=== PATIENT | female | born 1950 | race Caucasian/White ===

== ENCOUNTER 2020-04-27 18:31 | Emergency (ER) | payer MEDICARE, MEDICAID, SELFPAY ==
[2020-04-27] VITALS (7 sets, daily range): BP systolic 108–181; BP diastolic 60–84; PULSE 61–116; RESP 14–23; TEMP 36.1–36.7; O2SAT 92–98; BMI 39.6
--- NOTE | 2020-04-27 19:10 | XR_ITS ---
WS: [id number] Portable AP upright chest, 04/27/2020 Clinical Data: tia Comparison: None. Findings: No nodules, masses or effusions are seen. The heart is normal. The pulmonary vascularity is not increased. No pneumonia or pneumothorax is seen. The aortic arch and descending aorta are tortuo us. XR/XR chest 1V portable [id number] Impression: Atherosclerosis.
--- NOTE | 2020-04-27 19:10 | CTR_ITS ---
PROCEDURE INFORMATION: Exam: CT Head Without Contrast Exam date and time: 04/27/2020 7:27 PM Age: 69 years old Clinical indication: Other: TIA on Saturday TECHNIQUE: Imaging protocol: Computed tomography of the head without contrast. Total images: 190 Radiation optimization: All CT scans at this facility use at least one of these dose optimization techniques: automated exposure control; mA and/or kV adjustment per patient size (includes targeted exams where dose is matched to clinical indication); or iterative reconstruction. COMPARISON: No relevant prior studies available. RADIATION DOSE METRICS: Total DLP (mGy-cm): 769.82 FINDINGS: Brain: No evidence of active or acute intracranial pathologic process, hemorrhage, or trauma. Unremarkable white matter for age. No mass effect. No midline shift. Cerebral ventricles: No ventriculomegaly. Bones/joints: Unremarkable. No acute fracture. Paranasal sinuses: Visualized sinuses are unremarkable. No fluid levels. Mastoid air cells: Visualized mastoid air cells are well aerated. Soft tissues: Unremarkable. CT/CT head wo con* [id number] IMPRESSION: No visible acute intracranial abnormality. Radiation Dose CTDIVOL = (mGy): DLP = 769.82 (mGy-cm)
--- NOTE | 2020-04-27 19:11 | ECG_ITS ---
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 Measurements Intervals Seanor Rate: 80 P: 39 RI: 152 QRS: 10 QRSD: 90 T: 38 QT: 368 QTc: 426 Interpretive Statements SINUS RHYTHM NONSPECIFIC ST & T-WAVE ABNORMALITY No previous ECG available for comparison Electronically Signed On 04-27-2020 20:14:37 PARKS RECREATION DIRECTOR by Keya Land M.D. [id number]
--- NOTE | 2020-04-27 21:41 | W.ED.NEUROSD ---
HPI - Neuro Symptoms/Deficit General: Chief Complaint: Neuro Symptoms/Deficit Stated Complaint: TIA Saturday-wants checked out Time Seen by Provider: 04/27/20 21:34 Source: patient Mode of arrival: ambulatory Limitations: no limitations History of Present Illness: HPI Narrative: 69-year-old female states that on Saturday she felt like she had facial droop started having bilateral arm pain. States this lasted 5 to 10 minutes and then resolved. She states she had some slight headache since then and some pain in her arms. Patient states her PCP was concerned she could have had a mini stroke and wanted her to be evaluated here. She denies any chest pain. Denies any fever. Associated symptoms: Reports headache(s); Deny chest pain, nausea or vomiting Review of Systems Const: Denies: fever(s), chills, body aches or change in appetite Eyes: Denies: blurry vision or eye discomfort ENMT: Denies: throat pain or dental pain Card: Denies: chest pain Resp: Denies: dyspnea GI: Denies: abdominal pain, nausea, vomiting or diarrhea : Denies: dysuria Musc: Denies: neck pain or back pain Skin/Breast: Denies: rash Neuro: Reports: headache(s) Psych: Denies: depression Edmund/Lymph: Denies: easy bruising All/Imm: Denies: urticaria PFSH ED PFSH: Social History (Updated 04/27/20 @ 18:57 by Tay Boyce RN) Smoking and tobacco status: never smoked Alcohol intake: current Alcohol intake frequency: 0-2 Drinks per Day Substance/Drug Use: never NIH stroke score NIHSS: Level Of Consciousness - 1a: 0 Level Of Consciousness Questions - 1b: Both Correct Level Of Consciousness Commands - 1c: Both Correct Best Gaze - 2: Normal Visual Agosto - 3: No Visual Loss Facial Palsy - 4: Normal Motor Arm Right - 5: No Drift Motor Arm Left - 5: No Drift Motor Leg Right - 6: No Drift Motor Leg Left - 6: No Drift Limb Ataxia - 7: Absent Sensory - 8: Normal Best Language - 9: No Aphasia Dysarthia - 10: Normal Extinction And Inattention - 11: 0 Score: Total Score: 0 Physical Exam Const: COMMON NORMALS: no acute distress, patient oriented x3, healthy appearing and alert HENMT: COMMON NORMALS: normocephalic and atraumatic HEAD & SCALP: normocephalic and atraumatic Eye: COMMON NORMALS: Equal, round and reactive pupils present and EOMs intact bilaterally PUPIL: Yes Equal, round and reactive pupils present Neck/C-Spine: COMMON NORMALS: full ROM and supple Chest: COMMONS NORMALS: normal inspection of the chest and normal palpation of entire chest wall Resp: COMMON NORMALS: normal respiratory effort, No retractions, No use of accessory muscles and clear to auscultation bilaterally AUSCULTATION: clear to auscultation bilaterally Cardio: COMMON NORMALS: regular rate, regular rhythm and No murmurs present (Cardio) RATE: regular rate RHYTHM: regular rhythm GI: COMMON NORMALS: Normal to inspection, nondistended, normoactive bowel sounds present, Soft to palpation, non-tender and no masses PALPATION: Yes Soft to palpation Extremity: COMMON NORMALS: normal to inspection and full ROM Neuro: COMMON NORMALS: patient oriented x3, moves all extremities and no focal motor deficits SENSORIUM/ORIENTATION: Yes alert CRANIAL NERVES: Yes CN normal except as noted SPEECH: speech normal GAIT: Yes Normal gait present MOTOR EXAM: 5/5 motor strength present throughout Psych: COMMON NORMALS: mental status grossly normal, Normal thought process present and cooperative THOUGHT PROCESS: Normal thought process present Skin: COMMON NORMALS: no rashes or lesions noted and no wounds GENERAL SKIN EXAM: no rashes or lesions noted Course Vital Signs: Vital signs: Vital Signs Temperature 97 F L 04/27/20 21:44 Pulse Rate 88 04/27/20 22:32 Respiratory Rate 18 04/27/20 22:32 Blood Pressure 108/60 04/27/20 22:32 Pulse Oximetry 95 04/27/20 22:32 MDM - Neuro Symptoms/Deficit MDM Narrative: Medical decision making narrative: Patient presents here with TIA like symptoms that are atypical in nature. Patient is well-appearing here and has no signs of acute stroke. Head CT here is normal. Patient is stable for discharge is to follow-up with PCP and return if any other symptoms returns. She understands and agrees to plan. Lab Data: Labs: Lab Results 04/27/20 04/27/20 04/27/20 Range/Units 22:00 22:00 22:25 WBC 7.1 (4.0-10.0) 10^3/ uL RBC 4.33 (4.1-5.3) 10^6/u L Hgb 14.2 (11.5-15.3) g/dL Hct 43.0 (37.0-47.0) % MCV 99.3 H (81-99) fL MCH 32.8 (28.0-34.0) pg MCHC 33.0 (30.0-36.0) g/dL RDW 12.2 (12.1-15.1) % Plt Count 243 (130-400) 10^3/c mm MPV 10.4 (7.4-10.4) fL Neut % (Auto) 44.9 % Lymph % (Auto) 40.4 % [place] % (Auto) 10.9 % Eos % (Auto) 2.5 % Baso % (Auto) 1.0 % Neut # (Auto) 3.20 (1.8-7.7) 10^3/u L Lymph # (Auto) 2.9 (0.8-4.8) 10^3/u L [place] # (Auto) 0.8 (0.2-0.9) 10^3/u L Eos # (Auto) 0.2 (0.0-0.8) 10^3/u L Baso # (Auto) 0.1 (0.0-0.1) 10^3/u L Nucleated RBC % (a uto) 0 % Nucleated RBCs # 0.0 /100WBC PT 13.30 (12.1-14.9) SECO NDS INR 0.98 (0.8-1.2) Sodium 140 (136-145) mmol/L Potassium 3.8 (3.5-5.1) mmol/L Chloride 104 (98-107) mmol/L Carbon Dioxide 28 (22-29) mmol/L Anion Gap 11.8 (5-19) BUN 15 (8-23) mg/dL Creatinine 1.0 H (0.5-0.9) mg/dL GFR Calculation 55.0 L (90-130) mL/min Glucose 94 (65-115) mg/dL Calculated Osmolal ity 291 (285-295) mOsm/k g Calcium 9.8 (8.5-10.5) mg/dL Total Bilirubin 0.5 (0.15-1.2) mg/dL AST 54 H (0-32) U/L ALT 46 H (0-33) U/L Alkaline Phosphata se 100 (35-105) IU/L Total Protein 7.3 (6.6-8.7) g/dL Albumin 4.5 (3.5-5.2) g/dL Globulin 2.8 (1.3-4.6) g/dL Imaging Data^: CT Head: Attestation: I personally reviewed and interpreted this imaging study as follows: Radiologist's impression: [address] [address] [address] Scan Report Signed Patient: Anne Yeboah Unit #: [id number] : 1950 Age/Sex: 69 / F ADM Date: 04/27/20 Loc: ER Room/Bed: Attending Dr: Ordering Provider/Ordering MD: Sukumar Eid MD Date of Service: 04/27/20 Procedure(s): CT head wo con* [id number] Accession Number(s): [id number] Report Number: [id number] PROCEDURE INFORMATION: Exam: CT Head Without Contrast Exam date and time: 04/27/2020 7:27 PM Age: 69 years old Clinical indication: Other: TIA on Saturday TECHNIQUE: Imaging protocol: Computed tomography of the head without contrast. Total images: 190 Radiation optimization: All CT scans at this facility use at least one of these dose optimization techniques: automated exposure control; mA and/or kV adjustment per patient size (includes targeted exams where dose is matched to clinical indication); or iterative reconstruction. COMPARISON: No relevant prior studies available. RADIATION DOSE METRICS: Total DLP (mGy-cm): 769.82 FINDINGS: Brain: No evidence of active or acute intracranial pathologic process, hemorrhage, or trauma. Unremarkable white matter for age. No mass effect. No midline shift. Cerebral ventricles: No ventriculomegaly. Bones/joints: Unremarkable. No acute fracture. Paranasal sinuses: Visualized sinuses are unremarkable. No fluid levels. Mastoid air cells: Visualized mastoid air cells are well aerated. Soft tissues: Unremarkable. CT/CT head wo con* [id number] IMPRESSION: No visible acute intracranial abnormality. Radiation Dose CTDIVOL = (mGy): DLP = 769.82 (mGy-cm) CXR: Attestation: I personally reviewed and interpreted this imaging study as follows: My impression: no acute abnormality EKG Data^: EKG 1: Attestation: I personally reviewed and interpreted this EKG as follows: EKG interpretation date: 04/27/20 EKG interpretation time: 19:03 Interpretation: nsr hr [address] or t wave abnormalities qrs 90 qtc 404 Discharge Plan Discharge Patient Disposition: Home Clinical Impression: Transient cerebral ischemia Qualifiers: Transient cerebral ischemia type: unspecified Qualified Code(s): G45.9 - Transient cerebral ischemic attack, unspecified Condition: Stable Discharge Orders: Discharge ED (Routine); Ordered 04/27/20 Ordered By: Sukumar Eid Referrals: Gaudencio Villasenor DO [Primary Care Provider] - 1-3 days Discharge Diet: Advance as tolerated Discharge Activity: Resume usual activity Patient Instructions: TIA Coding Level of Care Code ED Resistance Brazer for Chg Fwd Exam Comprehensive
[2020-04-27 22:31] LABS: Alanine Aminotransferase 46 U/L (0-33); Albumin Level 4.5 g/dL (3.5-5.2); Alkaline Phosphatase 100 IU/L (35-105); Anion Gap 11.8 (5-19); Aspartate Amino Transferase 54 U/L (0-32); Blood Urea Nitrogen 15 mg/dL (8-23); Calcium 9.8 mg/dL (8.5-10.5); Carbon Dioxide 28 mmol/L (22-29); Chloride 104 mmol/L (98-107); Globulin 2.8 g/dL (1.3-4.6); Glucose 94 mg/dL (65-115); Osmolality Calculated 291 mOsm/kg (285-295); Potassium 3.8 mmol/L (3.5-5.1); Sodium 140 mmol/L (136-145); Total Bilirubin 0.5 mg/dL (0.15-1.2); Total Protein 7.3 g/dL (6.6-8.7)
[2020-04-27 22:34] LABS: INR 0.98 (0.8-1.2)
[2020-04-27 22:36] LABS: Basophils # 0.1 10^3/uL (0.0-0.1); Eosinophils # 0.2 10^3/uL (0.0-0.8); Eosinophils % 2.5 %; Hemoglobin 14.2 g/dL (11.5-15.3); Lymphocytes # 2.9 10^3/uL (0.8-4.8); Lymphocytes % 40.4 %; Mean Corpuscular Hemoglobin 32.8 pg (28.0-34.0); Mean Corpuscular Volume 99.3 fL (81-99); Mean Platelet Volume 10.4 fL (7.4-10.4); Monocytes # 0.8 10^3/uL (0.2-0.9); Monocytes % 10.9 %; Neutrophils % 44.9 %; Nucleated Red Blood Cells % 0 %; Platelet Count 243 10^3/cmm (130-400); Red Blood Count 4.33 10^6/uL (4.1-5.3); Red Cell Distribution Width 12.2 % (12.1-15.1); White Blood Count 7.1 10^3/uL (4.0-10.0)
== END 2020-04-27 23:00 | disposition home or self-care (01) ==
PROVIDERS: Emergency Provider Emergency Medicine; PCP Family Medicine
DX: G45.9 Transient cerebral ischemic attack, unspecified (principal)
CPT/HCPCS: 12345; 70450; 71045; 80053; 85025; 85610; 93005; 99281; 99283

== ENCOUNTER → 2020-12-12 09:12 | Outpatient (BNVA) | payer MEDICARE, MEDICAID, SELFPAY | PROVIDERS: PCP Family Medicine; Visit Provider Nurse Practitioner | DX: I99.8 Other disorder of circulatory system (principal) | CPT/HCPCS: 99204 ==

== ENCOUNTER → 2021-08-03 10:43 | Outpatient (BNVA) | payer MEDICAID, SELFPAY | PROVIDERS: PCP Family Medicine; Visit Provider Internal Medicine Critical Care Medicine | DX: J67.9 Hypersensitivity pneumonitis due to unspecified organic dust (principal); J45.909 Unspecified asthma, uncomplicated; I10 Essential (primary) hypertension; E03.9 Hypothyroidism, unspecified | CPT/HCPCS: 71046; 99213 ==

== ENCOUNTER → 2022-06-29 09:29 | Outpatient (BNVA) | payer MEDICARE, MEDICAID, SELFPAY | PROVIDERS: PCP Family Medicine; Visit Provider Internal Medicine Pulmonary Disease | DX: J45.909 Unspecified asthma, uncomplicated (principal); J82.83 Eosinophilic asthma; Z91.09 Other allergy status, other than to drugs and biological substances | CPT/HCPCS: 99214 ==

== ENCOUNTER → 2024-12-30 14:05 | Outpatient (BNVA) | payer OTHER, MEDICAID, SELFPAY | PROVIDERS: PCP Family Medicine; Referring Provider Family Medicine; Visit Provider Internal Medicine Cardiovascular Disease | DX: R06.02 Shortness of breath (principal); E78.2 Mixed hyperlipidemia; I10 Essential (primary) hypertension; R74.01 Elevation of levels of liver transaminase levels; Z87.891 Personal history of nicotine dependence; Z86.73 Personal history of transient ischemic attack (TIA), and cerebral infarction without residual deficits; R07.9 Chest pain, unspecified | CPT/HCPCS: 36415; 83880; 99204 ==

== ENCOUNTER 2025-01-29 07:45 | Outpatient (CLI) | payer OTHER, SELFPAY ==
[2025-01-29 08:02] VITALS: BMI 33.3
--- NOTE | 2025-01-29 08:04 | ECG_ITS ---
[facility] Date: 2025-01-29 Pat Name: Anne Yeboah Department: Room: Gender: Female Rn Cardiovascular: : 1950 Requested By: Min Altamirano Order Number: [id number] Betito MD: Won Brown M.D. Interpretive Statements LEXISCAN SESTAMIBI STRESS TEST Procedure: At the baseline, the blood pressure was 147/72 mmHg with a heart rate of 58 bpm. The electrocardiogram showed sinus bradycardia, normal axis with normal ST and T's. The Lexiscan was infused over a period of 20 seconds. A total of 0.4 mg of Lexiscan was infused. The stress phase was continued for a total of 5 minutes. Heart rate was at the end of stress phase was 67 bpm and a blood pressure of 136/49 mmHg. The EKG at the peak infusion revealed normal sinus rhythm with no significant ST-T wave changes. Sestamibi was injected 20 seconds after the Lexiscan infusion. Blood pressure at the end of recovery phase was 144/50 mmHg with a heart rate of 70 bpm. Conclusion: 1. Normal EKG response to Lexiscan infusion 2. No Lexiscan induced chest pain or cardiac arrhythmia. 3. Normal blood pressure and heart rate response. 4. Sestamibi/sestamibi perfusion scan pending; see separate report. Electronically Signed On 01-31-2025 15:17:44 CDT by Won Brown M.D. [email or web address] [email or web address]
--- NOTE | 2025-01-29 08:05 | NMCV_ITS ---
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 Supine position only as patient was unable to lay prone. SPECT RESULTS Technical Quality: Good Raw Data Analysis: Normal Image Corrections: No attenuation or motion correction applied Summed Stress Score: 0 Summed Rest Score: 0 Summed Difference Score: 0 PERFUSION FINDINGS SPECT images demonstrate homogeneous tracer distribution throughout the myocardium. FUNCTIONAL RESULTS (calculated via Gated SPECT) Stress Image LV EF (%): 90 Stress EDV (mL):61 TID: 0.81 Stress ESV (mL):6 FUNCTIONAL FINDINGS: There is normal left ventricular systolic function. IMPRESSIONS Myocardial perfusion imaging is normal. Ilana Red MD (Electronically Signed) Final Date: 29 January 2025 13:26 S
[2025-01-29] MEDS: ondansetron 2 mg/ML SDV 2 mL 4 MG IVP (09:34)
[2025-01-29 09:40] VITALS: BP 144/50; PULSE 73
== END 2025-01-29 07:46 | disposition home or self-care (01) ==
LOC: CDL 07:50
PROVIDERS: PCP Family Medicine; Visit Provider Internal Medicine Cardiovascular Disease
DX: R06.02 Shortness of breath (principal); R07.9 Chest pain, unspecified
CPT/HCPCS: 36415; 78452; 93017; 93306; 96374; 96375; A9500; J2405; J2785